=== PATIENT | male | born 1980 | race Caucasian/White ===

== ENCOUNTER 2020-04-16 00:02 | Emergency (ER) | payer OTHER, SELFPAY ==
[2019-10-21 08:53] VITALS: BMI 28.1
[2020-04-16 00:03] VITALS: BP 127/73; PULSE 97; RESP 16; TEMP 36.8; O2SAT 98; BMI 27.6
--- NOTE | 2020-04-16 00:05 | RAD_ITS ---
STUDY: X-RAY - LEFT ANKLE REASON FOR EXAM: Male, 39 years old patient with anterior ankle pain starting April 15, 2020. No known injury. TECHNIQUE: 3 view(s) of the ankle. COMPARISON: None. FINDINGS: Normal visualized distal tibia and fibula. Normal medial and lateral malleoli. Normal tibiotalar articulation and ankle mortise. Normal visualized talus and calcaneus. Intertarsal articulations and tarsometatarsal reticulations are within normal limits. There is no demonstrated fracture. There is mild soft tissue swelling. There is a small ankle effusion. RAD/Ankle min 3 Views IMPRESSION: Mild soft tissue swelling and small ankle effusion. Electronically Signed: Courtney Lang MD at 0:34 EDT , Service support ,
--- NOTE | 2020-04-16 02:10 | ED.VISSUMM ---
- ER Visit Summary Date of Service: 04/16/20 Chief Complaint: Left ankle pain History of Present Illness: The patient is a 39 M who has left ankle pain. Started earlier today after work. He points the anterior part of the ankles where it is hurting. Pain is worse with walking. He denies any specific injury. He has had no previous surgeries to the ankle. He denies any fevers. He took 2 Aleve at home without any relief. Physical Examination: Vital signs are reviewed. Left ankle exam reveals some swelling anteriorly. He does have some tenderness over the soft tissues but there is no bony tenderness. He does have some warmth. He does have painful range of motion. He has no pain with small arc range of motion. He has 2+ DP pulses. There is no calf tenderness to palpation. There is no leg swelling. Test Results: My concern is that he may actually have a cellulitis. X-rays show some soft tissue swelling and slight ankle effusion. I do not suspect this is a bony injury as he has no known injury and no bony tenderness. I doubt that this is a septic arthritis as he has no pain with small arc range of motion. No fevers. He has fairly good range of motion without any pain until he gets to the extremes. I will treat him with Keflex and Whitmer. I recommended ice and elevation. He has no calf tenderness. He has no leg swelling. I do not feel that this represents a DVT. Patient will be following up with his PCP. Emergency Department Course and Treatment: [] Treatment Plan: [] Disposition: Discharge Impression: Left ankle cellulitis This note was generated with [employer] dictation software. It may contain incorrect words, spelling, and punctuation that were not noted in review of the chart prior to signing ED Disposition - Plan for ED Patient: Disposition: Home or Assisted Living Instructions: ED Cellulitis Prescriptions: Cephalexin [Keflex] 500 mg PO Q6 #28 cap Transmission Status: Pending to [id number] Hydrocodone Bitart/Apap 5-325 [Whitmer 5MG-325MG] 1 tablet PO Q6H PRN PRN 3 Days #10 tablet PRN Reason: Pain Transmission Status: Received by [id number] Referrals: Care Physician,No Primary [Primary Care Provider] -
[2020-04-16] MEDS: Cephalexin 250 MG Capsule 500 MG PO (02:26)
[2020-04-16] MEDS: HYDROcodone Bitartrate/Apap 5/325 Tablet PO (02:29)
[2020-04-16 02:40] VITALS: BP 122/82; PULSE 87; RESP 16; O2SAT 99
== END 2020-04-16 02:40 | disposition home or self-care (01) ==
PROVIDERS: Emergency Provider Emergency Medicine
DX: L03.116 Cellulitis of left lower limb (principal); F17.200 Nicotine dependence, unspecified, uncomplicated
CPT/HCPCS: 73610; 99283

== ENCOUNTER → 2020-11-22 08:20 | Outpatient (CLI) | payer BC, SELFPAY ==
[2020-11-22 09:21] LABS: Hematocrit 50.1 % (40-54); Hemoglobin 16.8 g/dL (13.0-16.5); Mean Corp Hgb Conc 33.5 g/dL (32-36); Mean Corpuscular Hgb 29.3 pg (27.0-32.0); Mean Corpuscular Volume 87.4 fL (80-94); Mean Platelet Vol. 9.7 fl (6.2-12.0); Platelet Count 334 K/mm3 (150-450); RBC Distribution Width CV 12.3 % (11.6-14.6); RBC Distribution Width SD 39.5 fl (35.1-43.9); Red Blood Count 5.73 M/mm3 (4.6-6.2); White Blood Count 6.8 K/mm3 (4.4-11.0)
[2020-11-22 09:44] LABS: ALB/GLOB Ratio 1.2 RATIO (0.9-2.4); AST(SGOT) 24 U/L (15-37); Alanine Aminotransfer ALT/SGPT 53 U/L (16-61); Albumin, Serum 4.1 g/dL (3.2-5.0); Alkaline Phosphatase 45 U/L (45-117); Anion Gap 3 (5-15); BUN 17 mg/dL (7-18); BUN/Creat Ratio 13.9 RATIO (10-20); Chloride 105 mmol/L (98-107); Cholesterol 165 mg/dL (200); Creatinine, Serum 1.22 mg/dL (0.70-1.30); EST Glomerular Filtration Rate 70 mL/min (>60); Est Glom Filt Rate - Afr Amer 85 mL/min (>60); Globulin 3.5 g/dL (2.2-4.2); Glucose 89 mg/dL (74-106); High Density Lipoprotein 65 mg/dL; Magnesium 2.2 mg/dL (1.6-2.6); Potassium 3.9 mmol/L (3.5-5.1); Protein, Total 7.6 g/dL (6.4-8.2); Sodium Level 139 mmol/L (136-145); Triglycerides 41 mg/dL; Very Low Density Lipoprotein 8 mg/dL (5-40)
== END ==
LOC: MTLAB 08:22 → LAB 08:25
PROVIDERS: PCP Family Medicine; Referring Provider Family Medicine; Visit Provider Family Medicine
DX: E66.3 Overweight (principal); R25.3 Fasciculation
CPT/HCPCS: 36415; 80053; 80061; 83735; 85027